=== PATIENT | female | born 1980 | race Caucasian/White ===

== ENCOUNTER 2018-12-16 08:16 | Emergency (ER) | payer OTHER ==
[~2018-12-16] VITALS: Ht 157.5 cm; Wt 100.0 kg
[2018-12-16] MEDS ORDERED: PRINIVIL40 MG PO (08:35)
[2018-12-16] MEDS ORDERED: WELLBUTRIN XL150 MG PO (08:36)
[2018-12-16] MEDS ORDERED: LAMICTAL200 MG PO (08:36)
[2018-12-16] MEDS ORDERED: PROAIR HFA0.09 MG/AC IH (08:37)
[2018-12-16] MEDS ORDERED: AMITRIPTYLINE H25 M1 PO (08:37)
[2018-12-16] MEDS ORDERED: MIRENA52 MG IY (08:38)
[2018-12-16 08:41] VITALS: TEMP 99.2
[2018-12-16 09:23] LABS: STREP SCREEN NEGATIVE
[2018-12-16 09:29] LABS: BASO % 0.3 % (0.0-2.0); EOS # 0.1 (0.0-0.7); EOS % 0.5 % (0-4.0); GRAN # 9.2 (1.4-6.5); GRAN % 78.6 % (42.2-75.2); HEMATOCRIT 39.5 % (37.0-47.0); HEMOGLOBIN 13.1 g/dl (12.5-16.0); LYMPH # 1.9 (1.2-3.4); LYMPH % 16.1 % (20.0-51.0); MEAN CELL VOLUME 88 fl (80.0-100.0); MEAN CORPUSCULAR HEMOGLOBIN 29 pg (27.0-31.0); MEAN CORPUSCULAR HGB CONC 33 g/dl (33.0-37.0); MEAN PLATELET VOLUME 8.7 fl (7.4-10.4); MONO # 0.5 (0.1-0.6); MONO % 4.2 % (1.7-9.3); PLATELET COUNT 251 K/mm3 (130-400); RED BLOOD COUNT 4.51 M/mm3 (4.10-5.30)
[2018-12-16 09:39] LABS: ALBUMIN 4.1 gm/dL (3.5-5.0); BILIRUBIN,TOTAL 0.7 mg/dL (0.0-1.0); CALCIUM 9.2 mg/dL (8.4-10.2); CREATININE, serum 0.87 (0.52-1.25); POTASSIUM 3.8 mmol/L (3.4-5.0); TOTAL PROTEIN 7.6 gm/dL (6.4-8.2)
[2018-12-16] MEDS ORDERED: CLEOCIN HCL300 MG PO (10:24)
[2018-12-16 10:49] VITALS: BP 119/78; PULSE 87
== END 2018-12-16 10:48 | disposition home or self-care (01) ==
LOC: COL.ER 08:16
PROVIDERS: Physician Assistant
DX: J02.9 Acute pharyngitis, unspecified (principal); Z90.89 Acquired absence of other organs; Z88.0 Allergy status to penicillin
CPT/HCPCS: J1885; J7030